=== PATIENT | male | born 1975 | race Caucasian/White ===

== ENCOUNTER → 2022-09-14 | Outpatient (CLI) | payer MEDICARE ==
--- NOTE | 2022-09-14 12:03 | P.SLEEP ---
History of Present Illness DATE: 09/14/2022 CONSULTATION/NEW PATIENT EVALUATION HISTORY OF PRESENT ILLNESS/SLEEP-WAKE EVALUATION: 47year old gentleman had been evaluated in the sleep center for obstructive sleep apnea hypopnea syndrome. Patient has history of obstructive sleep apnea since about 2016. She is using CPAP equipment every night, but still has awakenings in the morning with a strong headache. He significantly lost weight since previous sleep study from 265 pounds down to 190 pounds. She feel worse if he is not using CPAP, but feels that the pressure is too high for him now SLEEP SCHEDULE: Usually sleep schedule from 10-11 PM until 7- 8 AM. FALLING ASLEEP: No problems with falling asleep. DURING SLEEP: []During the night patient wakes up to 3 times with occasional episodes of nocturia. No history of hypnogogical hallucinations, sleep paralysis, or cataplexy. Positive history of kicking and time significant amount of movements during the sleep. DURING THE DAY/WAKE STATE: Presently patient is on treatment with Adderall 30 mg once a day in the morning for ADHD. No sleepiness during the day. Patient is on Adderall for about 2 years. No sleepiness or so before he was started on treatment with Adderall. [place] sleepiness scale is 4, which is normal. Patient does not take any naps. PAST MEDICAL HISTORY: Depression with ECT treatment in 2012, history of ADHD, history of knee arthritis, multiple episodes of headaches, history of diabetes mellitus recent hemoglobin A1c according to patient 6.0. PAST SURGICAL HISTORY: Vasectomy. MEDICATIONS: Adderall extended release 30 mg once a day, Wellbutrin 300 mg once a day in the morning, Prozac 40 mg once a day in the evening, Cialis. SOCIAL HISTORY: Positive for history of smoking for about 20 pack years in the past, alcohol consumption occasional. FAMILY HISTORY: Hypertension, heart problems, mental illness, diabetes, thyroid problems. REVIEW OF SYSTEMS: In awakenings from sleep while on treatment with CPAP, headaches in the morning. No fevers. No double vision. No recent chest pain. No shortness of breath. No abdominal pain. No bleeding episodes. No blood in urine. No seizure episodes. PHYSICAL EXAMINATION: GENERAL: A pleasant patient without any distress. VITAL SIGNS: BP 137/84 , HR 99 , RR 18 , weight 190.6 pounds, height 5 foot 9- 3/4 inches, body mass index 27.4 . HEENT: PERRNORRIS, EOMI. Evaluation of oropharynx showed tongue protrudes midline, low position of soft palate Mallampati 34. NECK: Supple. No JVD. Thyroid is not palpable. 15 inches in circumference. LUNGS: Clear to percussion and to auscultation. Good air exchange. No wheezing or rhonchi. HEART: S1, S2 regular. No murmurs, gallops or rubs. ABDOMEN: Soft and nontender. Bowel sounds are present. No organomegaly appreciated. EXTREMITIES: No clubbing or cyanosis. TRAY CASTING MACHINE OPERATOR: Awake, alert, and oriented x3. Cranial nerves 2 to 7 intact. There is no fasciculation or atrophy noted. No focal deficits observed. ASSESSMENT: 1. Obstructive sleep apnea-hypopnea syndrome since 2015. Patient continued to use CPAP equipment every night, but wakes up from sleep and has episodes of headaches in the morning. Extremely low position of soft palate Mallampati 34. 2. Depression with status after ECT in 2012. 3 headaches. 4. History of ADHD, presently on treatment with Adderall. 5 and knee arthritis. 6. Diabetes mellitus. 7. Status post vasectomy. PLAN: 1. To get results of previous sleep studies. If results showed mild obstructive sleep apnea hypopnea syndrome, patient may need to repeat polysomnogram because he significantly lost weight since previous sleep study about 70 pounds 2. CPAP/BiPAP titration for correction of respiratory abnormalities during sleep. 3. Preferable position during sleep on the side. 4. No driving if patient feels any sleepiness. Patient is aware of civil and criminal liability for unsafe driving. 5. Sleep hygiene with regular sleep time for at least 7.5-8 hours. 6. Watching weight. Thank you very much for referring this patient for consultation. Sincerely, Yandel Bass MD, PhD, FAASM. Diplomat of [place] [employer], Sleep Medicine Board by [place] [employer] [place] [employer] Liquor Grinding Mill Operator of [facility] [place] [facility] Note - Sleep Note Sleep Note: Temperature: Pulse Rate: Respiratory Rate: Blood Pressure: SpO2: Height: Weight: BMI: Neck Circumference:
== END ==
LOC: SLEEP 11:10
PROVIDERS: ATTEND Internal Medicine
DX: G47.33 Obstructive sleep apnea (adult) (pediatric) (principal)
CPT/HCPCS: 99202

== ENCOUNTER → 2023-04-18 | Outpatient (CLI) | payer BC ==
--- NOTE | 2023-04-18 16:32 | P.PN ---
Subjective DATE: [] FOLLOW UP VISIT. Patient with obstructive sleep apnea hypopnea syndrome return to sleep center for follow-up visit. Patient has history of obstructive sleep apnea-hypopnea syndrome ,recently patient had Pap titration, received new CPAP unit. Today is first visit after patient started to use new CPAP equipment. Patient was able to use PAP equipment every night for the whole night, but he has episodes of headaches in the morning coughed awakenings. The patient does not have significant problems with the mask, PAP pressure and humidification. [place] sleepiness scale is 2, which is normal. I checked information from PAP unit. PAP unit pressure 5-9, average 8.9 cm H2O. Usage is 100 % for more then 4 hours, average 7.8 hours per night. Leak is 18.4 l/m, which is in acceptable range. Apnea Hypopnea Index is 4.0, which is normal. MEDICATIONS:1. Wellbutrin 300 mg once a day 2. Prozac 40 mg once a day 3. Adderall extended release 30 mg once a day 4. Cialis During physical exam: GENERAL: A pleasant patient without any distress. VITAL SIGNS: BP 132/95, HR 101, RR 16 , weight 208.6, temperature 98.1, oxygen saturation at room air 96% . HEENT: PERRLA, EOMI.low position of soft palate, Mallapati 3-4 . NECK: Supple. No JVD. LUNGS: Clear to percussion and to auscultation. Good air exchange. No wheezing or rhonchi. HEART: S1, S2 regular. ABDOMEN: Soft and nontender.[] EXTREMITIES: No clubbing or cyanosis. FINANCIAL AID ADMINISTRATOR: Awake, alert, and oriented x3. No focal deficit. Impressions: 1. Obstructive sleep apnea-hypopnea syndrome. Patient demonstrated great compliance with treatment, benefiting from treatment. 2. Patient has episodes of headaches in the morning coughed awakenings. 3. Depression with status after a ECT in 2012. 4. Diabetes mellitus. 5. History of ADHD. 6. knee arthritis. 7. Status post was ectomy. I decreased pressure in the machine to the range AutoPAP 5-7 centimeters of water, hopefully to stop headaches in the morning. Plan: 1. Continue using PAP equipment every night for the whole night. 2. To change air filter at least 1-2 times per month. 3. PAP unit should stay lower then position of the head. 4. Advised patient to remove all remaining water from humidifier canister daily and make it dry after each usage. Refill canister with fresh distilled water before each usage. 5. Sleep hygiene with regular time in bed for at least 8 hours. 6. Precautions related to driving. No driving if feel any sleepiness. 7. I will maintain prescription for PAP supplies including mask, tube, filters. 8. Follow up visit in 3 months or earlier if patient has any problems. 9. Watching weight. Thank you very much for allowing me to participate in the management of your patient. Yandel Bass MD, PhD, FAASM. Diplomat of [place] Board of Sleep Medicine, Sleep Medicine Board by [employer] Board of Internal Medicine Credit Administration Specialist of [facility] [place]
== END ==
LOC: SLEEP 15:27
PROVIDERS: ATTEND Internal Medicine
DX: G47.33 Obstructive sleep apnea (adult) (pediatric) (principal); E11.9 Type 2 diabetes mellitus without complications; F90.9 Attention-deficit hyperactivity disorder, unspecified type; F32.A Depression, unspecified; Z79.899 Other long term (current) drug therapy; M17.9 Osteoarthritis of knee, unspecified; Z98.890 Other specified postprocedural states
CPT/HCPCS: 99212

== ENCOUNTER → 2023-07-04 | Outpatient (CLI) | payer BC ==
--- NOTE | 2023-07-04 15:47 | P.PN ---
Subjective DATE: 07/04/2023 FOLLOW UP VISIT. Patient with obstructive sleep apnea hypopnea syndrome return to sleep center for follow-up visit. Information from previous visit have been reviewed. Patient is using PAP equipment every night for the whole night, getting PAP supplies in time. The patient does not have significant problems with the mask, PAP unit and humidification. [place] sleepiness scale is 2, which is perfect. I checked information from PAP unit. PAP unit pressure 5-7, average 7.0 cm H2O. Usage is 100 % for more then 4 hours, average 7.5 hours per night. Leak is 14.6 l/m, which is in acceptable range. Apnea Hypopnea Index is 6.6, which is slightly increased. MEDICATIONS:1. Adderall 30 mg once a day 2. Wellbutrin 300 mg once a day 3. Lipitor 10 mg once a day 4. Lexapro 10 mg once a day 5. Cialis During physical exam: GENERAL: A pleasant patient without any distress. VITAL SIGNS: BP 146/94, HR 99, RR 16, weight 204.2, temperature 98.3, oxygen saturation at room air 98 % . HEENT: PERRLA, EOMI.low position of soft palate, Mallapati 3-4 . NECK: Supple. No JVD. LUNGS: Clear to percussion and to auscultation. Good air exchange. No wheezing or rhonchi. HEART: S1, S2 regular. ABDOMEN: Soft and nontender.[] EXTREMITIES: No clubbing or cyanosis. BERRY PICKER MACHINE OPERATOR: Awake, alert, and oriented x3. No focal deficit. Impressions: 1. Obstructive sleep apnea-hypopnea syndrome. Patient demonstrated great compliance with treatment, benefiting from treatment. 2. Depression with history of ECT treatment in 2012. 3. History of Diabetes mellitus. 4. History of ADD. 5. History of knee arthritis. Plan: 1. Continue using PAP equipment every night for the whole night. 2. To change air filter at least 1-2 times per month. 3. PAP unit should stay lower then position of the head. 4. Advised patient to remove all remaining water from humidifier canister daily and make it dry after each usage. Refill canister with fresh distilled water before each usage. 5. Sleep hygiene with regular time in bed for at least 8 hours. 6. Precautions related to driving. No driving if feel any sleepiness. 7. I will maintain prescription for PAP supplies including mask, tube, filters. 8. Watching weight. 9. Follow up visit in 6 months or earlier if patient has any problems. Thank you very much for allowing me to participate in the management of your patient. Yandel Bass MD, PhD, FAASM. Diplomat of [place] Board of Sleep Medicine, Sleep Medicine Board by [place] Board of Internal Medicine Electronics Engineer of [facility] [place]
== END ==
LOC: 3 N SLEEP 15:21
PROVIDERS: ATTEND Internal Medicine
DX: G47.33 Obstructive sleep apnea (adult) (pediatric) (principal); E11.9 Type 2 diabetes mellitus without complications; F32.A Depression, unspecified; F98.8 Other specified behavioral and emotional disorders with onset usually occurring in childhood and adolescence; M17.0 Bilateral primary osteoarthritis of knee; Z99.89 Dependence on other enabling machines and devices
CPT/HCPCS: 99212

== ENCOUNTER → 2024-01-09 | Outpatient (CLI) | payer BC ==
--- NOTE | 2024-01-09 14:40 | P.PN ---
Subjective DATE: 01/09/2024 FOLLOW UP VISIT. Patient with obstructive sleep apnea hypopnea syndrome return to sleep center for follow-up visit. Information from previous visit have been reviewed. Patient is using PAP equipment every night for the whole night, getting PAP supplies in time. The patient does not have significant problems with the mask, PAP unit and humidification. [place] sleepiness scale is 2, which is normal. I checked information from PAP unit. PAP unit pressure 8-9, average 8.6 cm H2O. Usage is 90 % for more then 4 hours, average 9 hours per night. Leak is increased to 38 l/m. Apnea Hypopnea Index is 1.8, which is normal. MEDICATIONS:1. Adderall 30 mg once a day 2. Wellbutrin 300 mg once a day 3. Lexapro 10 mg once a day 4. Lipitor 10 mg once a day 5. Cialis During physical exam: GENERAL: A pleasant patient without any distress. VITAL SIGNS: BP 146/99, HR 82, RR 16 , weight 209.8, temperature 98.1, oxygen saturation at room air 98 % . HEENT: PERRLA, EOMI.low position of soft palate, Mallapati 3-4 . NECK: Supple. No JVD. LUNGS: Clear to percussion and to auscultation. Good air exchange. No wheezing or rhonchi. HEART: S1, S2 regular. ABDOMEN: Soft and nontender.[] EXTREMITIES: No clubbing or cyanosis. JUICE STANDARDIZER: Awake, alert, and oriented x3. No focal deficit. Impressions: 1. Obstructive sleep apnea-hypopnea syndrome. Patient demonstrated great compliance with treatment, benefiting from treatment. 2. ADD, on treatment with Adderall. 3. History of diabetes mellitus. 4. History of depression status post ECT treatment in 2012. 5. History of knee arthritis. Plan: 1. Continue using PAP equipment every night for the whole night. 2. To change air filter at least 1-2 times per month. 3. PAP unit should stay lower then position of the head. 4. Advised patient to remove all remaining water from humidifier canister daily and make it dry after each usage. Refill canister with fresh distilled water before each usage. 5. Sleep hygiene with regular time in bed for at least 8 hours. 6. Precautions related to driving. No driving if feel any sleepiness. 7. I will maintain prescription for PAP supplies including mask, tube, filters. 8. Follow up visit in 6 months or earlier if patient has any problems. 9. Watching weight. Thank you very much for allowing me to participate in the management of your patient. Yandel Bass MD, PhD, FAASM. Diplomat of [place] Board of Sleep Medicine, Sleep Medicine Board by [employer] of Internal Medicine Layer Out Plate Glass of [facility] [place]
== END ==
LOC: 3 N SLEEP 13:15
PROVIDERS: ATTEND Internal Medicine
DX: G47.33 Obstructive sleep apnea (adult) (pediatric) (principal); F98.8 Other specified behavioral and emotional disorders with onset usually occurring in childhood and adolescence; E11.9 Type 2 diabetes mellitus without complications; F32.A Depression, unspecified; M17.10 Unilateral primary osteoarthritis, unspecified knee; Z99.89 Dependence on other enabling machines and devices
CPT/HCPCS: 99212

== ENCOUNTER → 2024-05-06 | Outpatient (CLI) | payer BC ==
[2024-05-06 18:56] LABS: BUN/Creat Ratio 16.27 Ratio (12.00-20.00); Blood Urea Nitrogen 17.9 mg/dL (9.0-27.0); Calcium 9.9 mg/dL (8.7-10.3); Carbon Dioxide 24.3 mmol/L (21.6-31.8); Chloride 105 mmol/L (96-109); Glucose 132 mg/dL (70-110); Potassium 4.7 mmol/L (3.5-5.5); Sodium 141 mmol/L (135-145)
== END | disposition home or self-care (01) ==
LOC: LABWHC1 13:50
PROVIDERS: ATTEND Family Medicine
DX: E11.9 Type 2 diabetes mellitus without complications (principal)
CPT/HCPCS: 36415; 80048; 83036

== ENCOUNTER → 2024-06-23 | Outpatient (CLI) | payer BC ==
[2024-06-23 17:31] LABS: BUN/Creat Ratio 20.55 Ratio (12.00-20.00); Blood Urea Nitrogen 22.6 mg/dL (9.0-27.0); Calcium 9.8 mg/dL (8.7-10.3); Carbon Dioxide 26.8 mmol/L (21.6-31.8); Chloride 105 mmol/L (96-109); Glucose 143 mg/dL (70-110); Potassium 4.7 mmol/L (3.5-5.5); Sodium 142 mmol/L (135-145)
== END | disposition home or self-care (01) ==
LOC: LABWHC1 11:18
PROVIDERS: ATTEND Family Medicine
DX: E11.9 Type 2 diabetes mellitus without complications (principal)
CPT/HCPCS: 36415; 80048; 83036

== ENCOUNTER → 2024-07-30 | Outpatient (CLI) | payer BC ==
[2024-07-30 13:24] VITALS: BP 126/86; PULSE 83; RESP 16; TEMP 98.4
--- NOTE | 2024-07-30 14:03 | P.PROGSL ---
Subjective DATE: 07/30/2024 FOLLOW UP VISIT. Patient with obstructive sleep apnea hypopnea syndrome return to sleep center for follow-up visit. Information from previous visit have been reviewed. Patient is using PAP equipment every night for the whole night, getting PAP supplies in time. The patient does not have significant problems with the mask, PAP unit and humidification. [place] sleepiness scale is 3, which is normal. I checked information from PAP unit. PAP unit pressure 5-9, average 8.3 cm H2O. Usage is 100% for more then 4 hours, average 8.3 hours per night. Leak is 20.7 l/m, which is in acceptable range. Apnea Hypopnea Index is 1.0, which is normal. MEDICATIONS have been reviewed, please see below. During physical exam: GENERAL: A pleasant patient without any distress. VITAL SIGNS: Please see below, weight is 198.6 lbs. HEENT: PERRLA, EOMI.low position of soft palate, Mallapati 34. NECK: Supple. No JVD. LUNGS: Clear to percussion and to auscultation. Good air exchange. No wheezing or rhonchi. HEART: S1, S2 regular. ABDOMEN: Soft and nontender. EXTREMITIES: No clubbing or cyanosis. MACHINE DESIGN CHECKER: Awake, alert, and oriented x3. No focal deficit. Impressions: 1. Obstructive sleep apnea-hypopnea syndrome. Patient demonstrated great compliance with treatment, benefiting from treatment. 2. ADD. 3. Diabetes mellitus recent hemoglobin A1c 6.8 according to patient. 4. Obesity, BMI 37.5, patient lost 9 pounds comparing with previous visit. 5. History of depression, status post ECT treatment in 2013. 6. Knee arthritis. Plan: 1. Continue using PAP equipment every night for the whole night. 2. Sleep hygiene with regular time in bed for at least 7.5-8 hours 3. PAP unit should stay lower then position of the head. 4. Advised patient to remove all remaining water from humidifier canister daily and make it dry after each usage. Refill canister with fresh distilled water before each usage. 5. Watching and continue losing weight. 6. Precautions related to driving. No driving if feel any sleepiness. 7. I will maintain prescription for PAP supplies including mask, tube, filters. 8. Follow up visit in 6 months or earlier if patient has any problems. Thank you very much for allowing me to participate in the management of your patient. Yandel Bass MD, PhD, FAASM. Diplomat of [place] Board of Sleep Medicine, Sleep Medicine Board by [place] Board of Internal Medicine Boat Engine Mechanic of [facility] [place] Objective - Vital Signs Vital Signs: Vital Signs Temp 98.4 F 07/30/24 13:23 Pulse 83 07/30/24 13:23 Resp 16 07/30/24 13:23 BP 126/86 07/30/24 13:23 Pulse Ox 95 07/30/24 13:23 FiO2 Intake & Output 07/29/24 07/30/24 07/30/24 18:59 06:59 18:59 Weight 89.981 kg
== END ==
LOC: 3 N SLEEP 13:12
PROVIDERS: ATTEND Internal Medicine
CPT/HCPCS: 99212

== ENCOUNTER → 2024-10-21 | Outpatient (CLI) | payer BC ==
[2024-10-21 10:31] LABS: Appearance,Urine Clear (Clear); Bilirubin,Urine Negative (Negative); Blood,Urine Negative (Negative); Color,Urine Yellow; Glucose,Urine (UA) Negative (Negative); Ketones,Urine Negative (Negative); Leukocyte Esterase,Urine Negative (Negative); Nitrite,Urine Negative (Negative); PH, Urine 6.5 (5.0-8.0); Protein,Urine Negative (Negative); Specific Gravity,Urine 1.024 (1.001-1.035); Urobilinogen,Urine <2.0 mg/dL (<2.0)
[2024-10-21 15:37] LABS: Chol/HDL Ratio 1.89 Ratio; LDL Cholesterol,Calculated 49.6 mg/dL (0.0-131.0)
[2024-10-21 15:38] LABS: ALT 28 U/L (10-49); AST 22 U/L (14-35); BUN/Creat Ratio 17.18 Ratio (12.00-20.00); Blood Urea Nitrogen 18.9 mg/dL (9.0-27.0); Calcium 9.2 mg/dL (8.7-10.3); Carbon Dioxide 26.7 mmol/L (21.6-31.8); Chloride 106 mmol/L (96-109); Glucose 146 mg/dL (70-110); Potassium 4.3 mmol/L (3.5-5.5); Prostate Specific Antigen 0.27 ng/mL (0.000-3.500); Sodium 142 mmol/L (135-145)
[2024-10-21 16:42] LABS: Basophils # (A) 0.03 X 10*3/uL (0.00-0.10); Basophils % (A) 0.5 %; Eosinophils # (A) 0.12 X 10*3/uL (0.04-0.35); Eosinophils % (A) 2.2 %; HCT 42.5 % (39.6-50.0); HGB 14.3 g/dL (13.0-17.0); Lymphocytes # (A) 1.99 X 10*3/uL (0.90-5.00); Lymphocytes % (A) 36.4 %; MCH 29.9 pg (27.0-32.0); MCHC 33.6 g/dL (32.0-37.0); MCV 88.7 FL (80.0-97.0); Mean Platelet Volume 9.1 FL (9.5-12.2); Monocytes # (A) 0.44 X 10*3/uL (0.20-1.00); Monocytes % (A) 8.1 %; NRBC Per 100 WBC 0 X 10*3/uL (0.00-0.01); Neutrophils # (A) 2.87 X 10*3/uL (1.80-7.70); Neutrophils % (A) 52.6 %; Platelet Count 233 X 10*3/uL (140-440); RBC 4.79 X 10*6/uL (4.40-5.60); RDW 12.6 % (11.5-14.5); WBC 5.46 X 10*3/uL (4.50-10.00)
== END | disposition home or self-care (01) ==
LOC: LABWHC1 09:49
PROVIDERS: ATTEND Family Medicine
DX: E11.9 Type 2 diabetes mellitus without complications (principal); E78.5 Hyperlipidemia, unspecified; E66.3 Overweight; N40.1 Benign prostatic hyperplasia with lower urinary tract symptoms
CPT/HCPCS: 36415; 80048; 80061; 81003; 82306; 83036; 84153; 84443; 84450; 84460; 85025

== ENCOUNTER → 2025-04-01 | Outpatient (CLI) | payer BC ==
[2025-04-01 13:15] VITALS: BP 132/82; PULSE 88; RESP 16; TEMP 98.3
--- NOTE | 2025-04-01 13:32 | P.PROGSL ---
Subjective DATE: 04/01/2025 FOLLOW UP VISIT. Patient with obstructive sleep apnea hypopnea syndrome return to sleep center for follow-up visit. Information from previous visit have been reviewed. Patient is using PAP equipment every night for the whole night, getting PAP supplies in time. The patient does not have significant problems with the mask, PAP unit and humidification. [place] sleepiness scale is 3. I checked information from PAP unit. PAP unit pressure 5-9, average 8.4 cm H2O. Usage is 100% for more then 4 hours, average 9 hours per night. Leak is 23 l/m, which is in acceptable range. Apnea Hypopnea Index is 1.0, which is perfect. MEDICATIONS have been reviewed, please see below. During physical exam: GENERAL: A pleasant patient without any distress. VITAL SIGNS: Please see below, weight is 209 lbs. HEENT: PERRLA, EOMI.low position of soft palate, Mallapati 3-4. NECK: Supple. No JVD. LUNGS: Clear to percussion and to auscultation. Good air exchange. No wheezing or rhonchi. HEART: S1, S2 regular. ABDOMEN: Soft and nontender.[] EXTREMITIES: No clubbing or cyanosis. BARMAID: Awake, alert, and oriented x3. No focal deficit. Impressions: 1. Obstructive sleep apnea-hypopnea syndrome. Patient demonstrated great compliance with treatment, benefiting from treatment. 2. ADD. 3. Depression, status post ECT. 4. Diabetes mellitus, recent hemoglobin A1c 5.8. 5. Knee arthritis. Plan: 1. Continue using PAP equipment every night for the whole night. 2. Sleep hygiene with regular time in bed for at least 7.5-8 hours 3. PAP unit should stay lower then position of the head. 4. Advised patient to remove all remaining water from humidifier canister daily and make it dry after each usage. Refill canister with fresh distilled water before each usage. 5. Watching weight. 6. Precautions related to driving. No driving if feel any sleepiness. 7. I will maintain prescription for PAP supplies including mask, tube, filters. 8. Follow up visit in 8 months or earlier if patient has any problems. Thank you very much for allowing me to participate in the management of your patient. Yandel Bass MD, PhD, FAASM. Diplomat of [place] [employer] of Sleep Medicine, Sleep Medicine Board by [place] [employer] Medicine Wound Care Nurse of [facility] [place] Objective - Vital Signs Vital Signs: Vital Signs Temp 98.3 F 04/01/25 13:14 Pulse 88 04/01/25 13:14 Resp 16 04/01/25 13:14 BP 132/82 04/01/25 13:14 Pulse Ox 96 04/01/25 13:14 FiO2 Intake & Output 03/31/25 04/01/25 04/01/25 18:59 06:59 18:59 Weight 94.801 kg Home Medications: Home Medications Medication Instructions Recorded Confirmed Type Atorvastatin [Lipitor] 10 mg PO DAILY 04/01/25 04/01/25 History Dextroamphetamine/Amphetamine 20 mg PO DAILY 04/01/25 04/01/25 History [Adderall] Escitalopram [Lexapro] 10 mg PO DAILY 04/01/25 04/01/25 History buPROPion XL [Wellbutrin XL] 300 mg PO DAILY 04/01/25 04/01/25 History metFORMIN HCL ER [Glucophage XR] 1,000 mg PO DAILY 04/01/25 04/01/25 History tadalafiL [Cialis] 5 mg PO DAILY 04/01/25 04/01/25 History
== END ==
LOC: 3 N SLEEP 13:05
PROVIDERS: ATTEND Internal Medicine
DX: G47.33 Obstructive sleep apnea (adult) (pediatric) (principal); F32.A Depression, unspecified; E11.9 Type 2 diabetes mellitus without complications; M17.9 Osteoarthritis of knee, unspecified; F90.9 Attention-deficit hyperactivity disorder, unspecified type; Z98.890 Other specified postprocedural states
CPT/HCPCS: 99212